=== PATIENT | female | born 1950 | race Caucasian/White ===

== ENCOUNTER → 2016-08-21 | Outpatient (CLI) | payer OTHER ==
[~2016-08-21] MED LIST: CLOB15CR TP; CYCL10TA2 PO; DICL75TA PO; FLUT1DIS IH; IOHEXOL 180 MG/ML 10 ML VIAL. ONE; MULT1TAB52 PO; PROAIR HFA8.5 GM INH; TIOT18CA IH; methylPREDNISolone ACETATE 40 MG/ML VIAL. ONE; methylPREDNISolone ACETATE 80 MG/ML VIAL. ONE
--- NOTE | 2016-08-22 02:36 | PAIN ---
DATE OF SERVICE: INITIAL CONSULTATION FOR PAIN CLINIC CHIEF COMPLAINT: Neck and left upper extremity pain. HISTORY OF PRESENT ILLNESS: This is a 66-year-old female, who presents with a history of pain since earlier this month in the base of the neck and shoulder, radiating with tingling and cramping with weakness in the left arm without result of any specific injury or action that she is aware of, but came on fairly quickly, but without certain injury. She was exercising with some weights and the next day, felt the pain in the base of the neck and left arm and shoulder. The patient reports numbness and radiating pain in the left arm, nothing on the right side. It is becoming more constant, stabbing, throbbing, and shooting in the right____ upper extremity with some burning as well. The patient reports that it is worse at night, sleeping on her left side, and awakes from sleep at least once or twice at night. It does not affect her bowel or bladder control or ability to walk. She has done physical therapy in the past, which was not significantly helpful for her neck, but the chiropractic treatment in the past was fairly helpful several years ago, but nothing recently, and it was not going down her left arm at that time by her report. The patient reports worse with increasing activity using her activity with her arms over her head - even just putting on clothing is becoming more painful and difficult to perform secondary to the pain. The patient did have an MRI scan of the cervical spine that shows spinal stenosis at C4-5 to C6-7 with spinal cord deformity and disk bulges at C4-5, and disk protrusion with bilateral C5-6 and right C6-7 neuroforaminal narrowing, which may affect the exiting nerve roots. The patient reports no loss of motor function, but significant fatigability with her left upper extremity as noted. PAST MEDICAL HISTORY: Significant for hearing aids, glasses, COPD, shortness of breath - on home oxygen, smoking, and history of gastroesophageal reflux, arthritis, and skin sensitivities. PREVIOUS SURGERY: Includes hernia repair. CURRENT MEDICATIONS: Include the clobetasone____ inhaler, multivitamins, cyclobenzaprine, diclofenac, Advair inhaler, Spiriva inhaler, and ProAir inhaler. ALLERGIES: THE PATIENT HAS MULTIPLE ALLERGIES INCLUDING LATEX AND MULTIPLE PRESERVATIVE AGENTS, FRAGRANCES, COLORED CLOTHING DYES, AND DISINFECTANTS DOCUMENTED ON THE PATIENT'S CHART. FAMILY HISTORY: Significant for no major medical problems or conditions that she is aware of. SOCIAL HISTORY: The patient does not drink alcohol, has a smoking history, but quit many years ago. She is , lives with her spouse, and is currently retired, living in [place], [place]. REVIEW OF SYSTEMS: The patient's review of systems is positive for those items mentioned in the history of present illness. All systems were reviewed and are otherwise negative. It is complete, full, and well-documented on the patient's chart. PHYSICAL EXAMINATION: VITAL SIGNS: Today, blood pressure is 134/98, pulse 88, respirations 18, temperature 98.6 degrees Fahrenheit, height is 5 feet 6 inches, and weight is 182 pounds. GENERAL: The patient is awake, alert, oriented, and appropriate, very pleasant demeanor. HEENT: Head shows normocephalic, atraumatic. Extraocular movements are intact and symmetrical. Oral cavity - mucous membranes are moist and pink. Dentition is intact. NECK: Shows anterior throat supple without palpable lymphadenopathy noted. Swallow reflex is symmetrical. CHEST: Shows normal on inspection. Breath sounds are clear to auscultation bilaterally. HEART: Shows S1 and S2 clear. No murmurs are auscultated. ABDOMEN: Soft, obese, nontender, and nondistended. No palpable organomegaly is noted. No rebound or guarding demonstrated. BACK: Shows spine grossly midline. Normal-appearing cervical lordotic curvature, thoracic kyphotic curvature, and lumbar lordotic curvature. No previous bruises, lesions, rashes, or scars are noted throughout the spine. The patient's neck shows moderate tenderness with palpation, although symmetrical in appearance in the cervical paraspinous musculature, slightly more on the left side than the right, but without asymmetry with only minimal increase in pain on the left side compared to the right without radiation or trigger points. The patient has full rotational motion of the cervical spine, both laterally greater than 45 degrees, close to 90 degrees right and left, as well as full extension and full forward flexion without significant difficulty or pain reported, mildly tender with far left lateral rotation only without radiation. EXTREMITIES: The patient's upper extremities show deep tendon reflexes at 2+ in the biceps and triceps tendons. Motor exam is strong with approximately 4 on a scale of 5 with draftsperson strength, left and 5/5 on the right. Biceps and triceps flexion is likewise 4/5 left and 5/5 right. Shoulder shrug is strong and intact without loss of strength and resistance as is abduction of shoulders to 90 degrees without loss of strength on resistance. Peripheral pulses are 2+ in the radial distribution. No peripheral edema is noted. No clubbing, no cyanosis. Upper extremities are warm and dry to touch, equal in color and appearance. IMPRESSION: 1. This is a 66-year-old female, who presents with a history of neck and left upper extremity pain in a radicular fashion for about 1 month now. 2. MRI scan as noted. 3. History of chronic obstructive pulmonary disease with home oxygen requirements. PLAN: Options were discussed with the patient and the patient's spouse, who accompanies her to visit today. We discussed continued physical therapies, interventional techniques, and medication managements. The patient would like to pursue interventional techniques. We discussed a cervical epidural steroid injection, using description as well as anatomical models to describe the procedure. Risks were then discussed including, but not limited to bleeding, infection, possibility of epidural hematoma, subsequent neurologic compromise, dural punctures, headaches, spinal cord and/or nerve damage, side effects of steroid medication, and poor results regarding pain control. The patient understands and wishes to proceed. The patient will return to clinic in approximately 2 weeks for followup, was counseled on return appointment, activity level, and side effects to be aware of. DIAGNOSES: Cervical radiculopathy with cervical spinal stenosis and cervical degenerative disk disease. PROCEDURE: Cervical epidural steroid injection: Translaminar approach at the C5-6 level using C-arm fluoroscopic guidance under sterile prep and drape using local anesthetic. MEDICATIONS INJECTED: Depo-Medrol 120 mg plus 5 mL of preservative-free normal saline and 2 mL of Isovue for contrast. CONDITION AT DISCHARGE: Stable. The patient tolerated the procedure well, had no complications. EVIE MEMBRENO MD DR: HOWIE/chase JOB#: [id number] / [id number]
== END | disposition home or self-care (01) ==
LOC: PNCL 11:01
PROVIDERS: ATTEND Anesthesiology
DX: M50.123 Cervical disc disorder at C6-C7 level with radiculopathy (principal); M48.02 Spinal stenosis, cervical region; J44.9 Chronic obstructive pulmonary disease, unspecified; K21.9 Gastro-esophageal reflux disease without esophagitis; M19.90 Unspecified osteoarthritis, unspecified site; Z87.891 Personal history of nicotine dependence
CPT/HCPCS: 62321; J1030; J1040

== ENCOUNTER → 2016-09-05 | Outpatient (CLI) | payer OTHER ==
--- NOTE | 2016-09-05 19:04 | PAIN ---
DATE OF SERVICE: 09/05/2016 PROGRESS NOTE FOR PAIN CLINIC DIAGNOSES: Cervical radiculopathy, cervical spinal stenosis and cervical degenerative disk disease. HISTORY OF PRESENT ILLNESS: The patient is a 66-year-old female, who returns for followup status post fall on cervical epidural steroid injection x 1. The patient reports about 50% improvement in the neck and left upper extremity. The pain is returning now, it is better for about a week and a half. The pain is now returning in the base of the neck, left shoulder, left upper extremity and the hand with some tingling and numbness as well as some weakness returning the patient reports for first week or so, was doing much better. She is very pleased with her progress, but it is ____ returning as such. The patient reports no new motor or sensory deficits, no new complaints, reports the pain is radiating tingling, cramping with tightness, shooting, sharp and aching pains as well. PHYSICAL EXAMINATION: VITAL SIGNS: Today, the patient's blood pressure is 143/94, pulse is 80, respirations 18, temperature 98.7 degrees Fahrenheit. Height is 5 feet 6 inches, weight is 183 pounds. GENERAL: The patient is awake, alert, oriented, appropriate, very pleasant demeanor. HEENT: Head shows normocephalic, atraumatic. Extraocular movements are intact and symmetrical. Oral cavity shows mucous membranes moist and pink. Dentition is intact. NECK: Shows anterior throat supple without palpable lymphadenopathy noted. Swallow reflex is symmetrical. CHEST: The patient's chest shows normal on inspection. Breath sounds clear to auscultation bilaterally. HEART: Shows S1 and S2 clear. EXTREMITIES: Upper extremity showed deep tendon reflexes at 2+ in the biceps and triceps tendons. Motor exam is approximately 4 on a scale of [address] inspector strength and 5/5 on the right. Neck shows good rotational motion as well as extension and flexion without exacerbation of pain in the left arm. Options were discussed with the patient and the patient's old chart was reviewed as her current medication regimen updated. Current review updated today as well. We will proceed with a second cervical epidural steroid injection today with fluoroscopic guidance. Risks were again discussed including, but not limited to bleeding, infection, possibility of intravascular injection and sequelae, spread of local anesthetic and numbness, epidural hematoma and subsequent neurological compromise, dural punctures, headaches, spinal cord and/or nerve damage, pneumothorax, side effects of steroid medications, exposure to fluoroscopy and poor results regarding pain control. The patient understands and wishes to proceed. The patient will return to the clinic in approximately 2 weeks for followup, was counseled as to return appointment, activity level and side effects to be aware of. DIAGNOSES: Cervical radiculopathy, cervical spinal stenosis, cervical degenerative disk disease. PROCEDURE: Cervical epidural steroid injection in translaminar approach at the C6-C7 level using C-arm fluoroscopic guidance under sterile prep and drape and local anesthetic. MEDICATIONS INJECTED: 120 mg Depo-Medrol plus 5 mL of preservative-free normal saline and 2 mL Isovue contrast. CONDITION AT DISCHARGE: Stable. The patient tolerated the procedure well, had no complications. EVIE MEMBRENO MD DR: HOWIE/chase JOB#: [id number] / [id number]
== END | disposition home or self-care (01) ==
LOC: PNCL 09:49
PROVIDERS: ATTEND Anesthesiology
DX: M50.123 Cervical disc disorder at C6-C7 level with radiculopathy (principal); M48.02 Spinal stenosis, cervical region
CPT/HCPCS: 62321; J1030; J1040

== ENCOUNTER → 2016-09-24 | Outpatient (CLI) | payer OTHER ==
--- NOTE | 2016-09-24 20:04 | PAIN ---
DATE OF SERVICE: 09/24/2016 PROGRESS NOTE FOR PAIN CLINIC DIAGNOSES: Cervical radiculopathy with cervical spinal stenosis and cervical degenerative disk disease. HISTORY OF PRESENT ILLNESS: The patient is a 66-year-old female, who returns for followup status post cervical epidural steroid injections x 2. The patient reports about 90% improvement for the first 5 days. The pain is returning now since that time in the neck and left upper extremity as it was ____ anywhere from 3 to 8 on a scale 10, currently 1 on a scale of 10, is tingling, cramping, shooting, aching and radiating pain, which can be severe. The patient reports no new motor or sensory deficits; however, no new complaints, still some fair significant pain again reduce for about 5 days, but then returned. PHYSICAL EXAMINATION: VITAL SIGNS: The patient's blood pressure 152/91, pulse 87, respirations are 20, temperature 97.5 degrees Fahrenheit, weight is 183 pounds. GENERAL: The patient is awake, alert, oriented, appropriate, very pleasant demeanor. HEENT: Head shows normocephalic, atraumatic. Extraocular movements are intact and symmetrical. Oral cavity, mucous membranes are moist and pink. Dentition is intact. NECK: Shows anterior throat supple without palpable lymphadenopathy noted. Swallow reflex is symmetrical. CHEST: Shows normal on inspection. Breath sounds are clear to auscultation bilaterally. HEART: Shows S1, S2 clear. ABDOMEN: Soft, nontender, nondistended. No palpable organomegaly, no rebound or guarding demonstrated. BACK: Shows spine grossly midline. Neck shows some moderate tenderness to palpation only in the low aspect of the posterior cervical paraspinous musculature without radiation. The patient's neck shows good rotational motion as well as extension and flexion without significant pain reported with some mild pain bilaterally with rotation only and extension, but not with forward flexion. EXTREMITIES: The patient's upper extremities show deep tendon reflexes 2+ in the biceps and triceps tendons. Motor exam is strong with snowmaker strength rated at 5/5 as is biceps and triceps flexion and equal. Options were discussed with the patient and the patient's old chart was reviewed as her current medication regimen updated. Current review of systems updated today as well. We will proceed with third in the series of cervical epidural steroid injection using C-arm fluoroscopic guidance. Risks were again discussed including, but not limited to bleeding, infection, possibility of epidural hematoma, subsequent neurologic compromise, dural punctures, headaches, spinal cord and/or nerve damage, side effects of steroid medication and poor results regarding pain control. The patient understands and wishes to proceed. The patient will return to clinic in approximately 2 weeks for followup, was counseled as to return appointment and activity level and side effects to be aware of. DIAGNOSES: Cervical radiculopathy with cervical spinal stenosis and cervical degenerative disk disease. PROCEDURE: Cervical epidural steroid injection in translaminar approach at C6-C7 level using C-arm fluoroscopic guidance under sterile prep and drape and local anesthetic. MEDICATIONS INJECTED: Depo-Medrol 120 mg plus 5 mL of preservative-free normal saline and 2 mL of Isovue for contrast. CONDITION AT DISCHARGE: Stable. The patient tolerated procedure well, had no complications. EVIE MEMBRENO MD DR: HOWIE/chase JOB#: [id number] / [id number]
== END | disposition home or self-care (01) ==
LOC: PNCL 09:52
PROVIDERS: ATTEND Anesthesiology
DX: M50.123 Cervical disc disorder at C6-C7 level with radiculopathy (principal); M48.02 Spinal stenosis, cervical region
CPT/HCPCS: 62321; J1030; J1040

== ENCOUNTER → 2016-10-17 | Outpatient (CLI) | payer OTHER ==
[~2016-10-17] MED LIST changes: -IOHEXOL 180 MG/ML 10 ML VIAL. ONE; -methylPREDNISolone ACETATE 40 MG/ML VIAL. ONE; -methylPREDNISolone ACETATE 80 MG/ML VIAL. ONE
== END | disposition home or self-care (01) ==
LOC: PF 09:41
PROVIDERS: ATTEND Internal Medicine Critical Care Medicine
DX: R06.02 Shortness of breath (principal)
CPT/HCPCS: 94060; 94729

== ENCOUNTER → 2017-10-30 | Outpatient (CLI) | payer MEDICARE | END | disposition home or self-care (01) | LOC: NM 13:27 | DX: J84.10 Pulmonary fibrosis, unspecified (principal); R91.8 Other nonspecific abnormal finding of lung field | CPT/HCPCS: 71046; 78582; 96374; A9540; A9558 ==

== ENCOUNTER → 2017-10-31 | Outpatient (CLI) | payer MEDICARE ==
[~2017-10-31] MED LIST changes: -CLOB15CR TP; -CYCL10TA2 PO; -DICL75TA PO; -FLUT1DIS IH; +IOHEXOL 300 MG/ML 10ML VIAL. IV; -MULT1TAB52 PO; -PROAIR HFA8.5 GM INH; -TIOT18CA IH
[2017-10-31] MEDS: IOHEXOL 300 MG/ML 100ML VIAL. IV (13:31)
[2017-10-31 13:36] LABS: ISTAT CREATININE 0.8 mg/dL (0.6-1.1)
== END | disposition home or self-care (01) ==
LOC: KCIC CT 12:35
DX: M47.894 Other spondylosis, thoracic region (principal); J84.10 Pulmonary fibrosis, unspecified; R91.8 Other nonspecific abnormal finding of lung field; R60.0 Localized edema; Z87.891 Personal history of nicotine dependence
CPT/HCPCS: 71275; 82565; Q9967

== ENCOUNTER → 2017-11-04 | Outpatient (CLI) | payer MEDICARE ==
[2017-11-04] MEDS: IOHEXOL 300 MG/ML 100ML VIAL. IV (10:19)
[2017-11-04] MEDS: IOHEXOL 240 MG/ML 50ML VIAL. PO (10:19)
== END | disposition home or self-care (01) ==
LOC: KCIC CT 08:55
DX: R59.0 Localized enlarged lymph nodes (principal); J44.9 Chronic obstructive pulmonary disease, unspecified; Z87.891 Personal history of nicotine dependence
CPT/HCPCS: 74177; Q9966; Q9967

== ENCOUNTER 2017-11-08 06:54 | Outpatient (CLI) | payer MEDICARE ==
[2017-11-08 07:23] LABS: ADD MAN DIFF? NO
[2017-11-08 07:27] LABS: BASO # 0.1 x10^3/uL (0.0-0.2); BASO % 1 % (0-3); EOS # 0.3 x10^3/uL (0.0-0.7); EOS % 5 % (0-3); HEMOGLOBIN 13.5 g/dL (12.0-15.5); LYMPH # 1.4 x10^3/uL (1.0-4.8); LYMPH % 22 % (24-48); MEAN CORPUSCULAR HEMOGLOBIN 30 pg (25-35); MEAN CORPUSCULAR HGB CONC 34 g/dL (31-37); MEAN CORPUSCULAR VOLUME 88 fL (79-100); MONO # 0.6 x10^3/uL (0.0-1.1); MONO % 10 % (0-9); NEUT # 4.1 x10^3uL (1.8-7.7); NEUT % 63 % (31-73); PLATELET COUNT 353 x10^3/uL (140-400); RED BLOOD COUNT 4.54 x10^6/uL (3.50-5.40); RED CELL DISTRIBUTION WIDTH 14.1 % (11.5-14.5); WHITE BLOOD COUNT 6.6 x10^3/uL (4.0-11.0)
[2017-11-08 07:37] LABS: PARTIAL THROMBOPLASTIN TIME 30 SEC (24-38); PROTHROMBIN TIME PATIENT 12.9 SEC (11.7-14.0)
[2017-11-08] MEDS ORDERED: LIDOCAINE WITH 8.4% SOD BICARB 3 ML DISP.SYRIN. (07:55)
[2017-11-08] MEDS ORDERED: MIDAZOLAM HCL/PF 2 MG/2 ML VIAL. (08:43)
[2017-11-08] MEDS ORDERED: fentaNYL PF VIAL 100 MCG/2 ML VIAL (08:44)
[2017-11-08] MEDS: LIDOCAINE WITH 8.4% SOD BICARB 3 ML DISP.SYRIN. IJ (09:13)
[2017-11-08] MEDS: MIDAZOLAM HCL/PF 2 MG/2 ML VIAL. IV (09:13)
[2017-11-08] MEDS: fentaNYL PF VIAL 100 MCG/2 ML VIAL IV (09:14)
== END 2017-11-08 10:55 | disposition home or self-care (01) ==
LOC: INTRAD 06:54
DX: R59.1 Generalized enlarged lymph nodes (principal); Z91.040 Latex allergy status; Z91.048 Other nonmedicinal substance allergy status; Z88.8 Allergy status to other drugs, medicaments and biological substances; J45.909 Unspecified asthma, uncomplicated; F32.9 Major depressive disorder, single episode, unspecified; F17.200 Nicotine dependence, unspecified, uncomplicated; Z79.01 Long term (current) use of anticoagulants
CPT/HCPCS: 36415; 49180; 77012; 85025; 85610; 85730; 88184; 88185; 88305; 99152; 99153; J2250; J3010

== ENCOUNTER → 2018-04-09 | Outpatient (CLI) | payer MEDICARE ==
[2017-11-08 10:21] VITALS: BP 118/75
[~2018-04-09] MED LIST changes: +BUPR150T20 PO; +CALC-77 PO; +CLOB15CR TP; +CYCL10TA2 PO; +DICL75TA PO; +FLUT1DIS IH; -IOHEXOL 300 MG/ML 10ML VIAL. IV; +MAGN400C PO; +MULT1TAB52 PO; +PANT20TA2 PO; +PROAIR HFA8.5 GM INH; +TIOT18CA IH
--- NOTE | 2018-04-09 11:19 | RAD ---
Examination: CT CHEST WO CONTRAST History: F/U LUNG NODULE NO CONTRAST PREV SENT Comparison/Correlation: 10/31/2017 CTA of the chest Findings: Axial images of the chest were obtained without contrast. Sagittal and coronal reformatted images were provided. Diffuse centrilobular emphysematous involvement of the lung conley identified. The tracheobronchial tree is unremarkable. Previously described right upper lobe nodule at the mid thoracic level has resolved. Punctate calcified granuloma at this site is seen. There is a new noncalcified nodule lateral to the left lower lobe bronchus on axial image 142 measuring 0.7 cm diameter Mild luminal narrowing involving the right lower lobe bronchus on axial image 221 is present. Mild luminal narrowing of the left lower lobe bronchus similar in appearance also identified on axial image 238. The left lateral costophrenic sulcus, there is a 0.7 cm x 0.6 cm x 0.5 cm longitudinal spiculated infiltrate identified best seen on axial image 48 of series 2. This finding is new compared to prior exam. Linear scarring involving the lingula adjacent to the mediastinum is unchanged compared to 10/31/2017 although it is new compared to 11/19/2014. No enlarged thoracic lymph nodes. No pleural or pericardial effusion. Retrocrural and upper abdominal retroperitoneal lymph nodes are similar upon correlation with CT of the abdomen and pelvis without contrast dated 04/01/2018 mild left hydronephrosis again seen. Subtle high density within the gallbladder which may represent sludge or calculi noted. Impression: There are new left lung nodule and lateral basilar scar/nodule. Interval follow-up to assess resolution recommended. Consider follow-up in 3-6 months. Resolution of previously evident right upper lobe nodule. Mild luminal narrowing of the right and a left lower lobe bronchus. These likely represent mucous plugging. This also may be assessed on follow-up. Retrocrural and upper abdominal lymphadenopathy again seen. Emphysema. Possibility of cholelithiasis. Electronically signed by: Jj Khoury MD (04/09/2018 11:15 AM) [facility]
== END | disposition home or self-care (01) ==
LOC: CT 10:24
PROVIDERS: ATTEND Internal Medicine Critical Care Medicine
DX: R91.1 Solitary pulmonary nodule (principal); J43.2 Centrilobular emphysema; N13.39 Other hydronephrosis
CPT/HCPCS: 71250

== ENCOUNTER 2018-04-14 08:42 | Outpatient (CLI) | payer MEDICARE ==
[~2018-04-14] VITALS: Ht 167.6 cm; Wt 79.4 kg
[2018-04-14] VITALS (17 sets, daily range): BP systolic 112–158; BP diastolic 2–93
[2018-04-14 09:03] LABS: BASO # 0.1 x10^3/uL (0.0-0.2); BASO % 1 % (0-3); EOS # 0.4 x10^3/uL (0.0-0.7); EOS % 4 % (0-3); HEMATOCRIT 40.4 % (36.0-47.0); HEMOGLOBIN 13.6 g/dL (12.0-15.5); LYMPH # 1.3 x10^3/uL (1.0-4.8); LYMPH % 16 % (24-48); MEAN CORPUSCULAR HEMOGLOBIN 30 pg (25-35); MEAN CORPUSCULAR HGB CONC 34 g/dL (31-37); MEAN CORPUSCULAR VOLUME 90 fL (79-100); MONO # 0.9 x10^3/uL (0.0-1.1); MONO % 11 % (0-9); NEUT # 5.8 x10^3uL (1.8-7.7); NEUT % 68 % (31-73); PLATELET COUNT 411 x10^3/uL (140-400); RED BLOOD COUNT 4.49 x10^6/uL (3.50-5.40); RED CELL DISTRIBUTION WIDTH 14.7 % (11.5-14.5); WHITE BLOOD COUNT 8.5 x10^3/uL (4.0-11.0)
[2018-04-14 09:39] LABS: PROTHROMBIN TIME PATIENT 13.5 SEC (11.7-14.0)
[2018-04-14] MEDS ORDERED: LIDOCAINE WITH 8.4% SOD BICARB 3 ML DISP.SYRIN. ONE (10:02)
[2018-04-14] MEDS ORDERED: MIDAZOLAM HCL/PF 2 MG/2 ML VIAL. ONE (10:15)
[2018-04-14] MEDS ORDERED: fentaNYL PF VIAL 100 MCG/2 ML VIAL ONE (10:15)
[2018-04-14] MEDS ORDERED: LIDOCAINE WITH 8.4% SOD BICARB 3 ML DISP.SYRIN. IJ ONE (10:30)
[2018-04-14] MEDS ORDERED: fentaNYL PF VIAL 100 MCG/2 ML VIAL IV ONE (10:30)
[2018-04-14] MEDS ORDERED: MIDAZOLAM HCL/PF 2 MG/2 ML VIAL. IV ONE (10:30)
--- NOTE | 2018-04-14 16:13 | RAD ---
CT-guided biopsy, enlarging perisplenic nodule 04/14/2018 Indication: 68-year-old female with somewhat amorphous soft tissue density mass surrounding the abdominal aorta. Imaging findings are concerning for worsening periaortic adenopathy. Patient also has an enlarging perisplenic nodule. This could also represent an enlarged lymph node. Both processes have progressed over the last 6 months. Approximately 6 months ago previous percutaneous biopsy was performed with nondiagnostic results. The case was discussed with the ordering physician and biopsy of the perisplenic nodule was chosen. Discussion: The risks and benefits of the procedure were discussed the patient. Informed consent was obtained. A timeout procedure was performed. The left posterior thorax and upper abdomen were and prepped and draped using sterile barrier technique. 1% lidocaine was administered for local anesthesia. Under intermittent CT guidance a 17-gauge needle was advanced to the periphery of the nodule. Multiple 18-gauge core biopsy samples were obtained and divided amongst formalin and RPMI fluid. Needle was removed and manual pressure held. Repeat imaging demonstrated no significant hemorrhage or other complication. Sterile dressings were applied. The procedure was performed under conscious sedation including continuous cardiopulmonary monitoring via a dedicated sedation nurse. [id number] sedation time: 45 minutes Impression: CT-guided biopsy, perisplenic nodule PQRS Compliance Statement: One or more of the following individualized dose reduction techniques were utilized for this examination: 1. Automated exposure control 2. Adjustment of the mA and/or kV according to patient size 3. Use of iterative reconstruction technique
--- NOTE | 2018-04-18 16:07 | PATHOLOGY ---
[facility] Accession Number: [id number] . 01 Material submitted: . ABDOMINAL MASS BIOPSY . 01 Clinical history: . Abd mass . 02 Diagnosis: Fibroadipose tissue, abdominal mass CT-guided needle biopsies: - METASTATIC POORLY DIFFERENTIATED ADENOCARCINOMA. SEE COMMENT. . (JPM:edy; 04/16/2018) QMS/04/16/2018 . 02 Comment: Sections of the abdominal mass CT-guided needle biopsy reveal a malignant epithelial neoplasm involving segments of fibroadipose tissue. The malignant cells are present in solid nests. The malignant cells have moderate amounts of pale esophophilic cytoplasm, and possess enlarged, rounded to irregular moderately pleomorphic hyperchromatic nuclei containing prominent nucleoli. The tumor shows no obvious glandular or squamous differentiation. A few tumor cells appear to possess intracytoplasmic lumina. There are mitotic figures present. . A portion of the specimen submitted for lymphocyte marker studies by flow cytometry shows no flow immunophenotypic evidence of a T-cell lymphoproliferative disorder and too few B-cells for evaluation. . A panel of immunoperoxidase stains is obtained on block A1 and yields the following results: . AE1/AE3: Tumor cells positive Cytokeratin 7: Tumor cells positive Cytokeratin 20: Tumor cells negative TTF-1: Tumor cells negative p40: Tumor cells negative CDX2: Tumor cells negative Thrombomodulin: Tumor cells negative. ER: Tumor cells positive [place]: Tumor cells negative. . The morphologic and immunophenotypic findings are supportive of the diagnosis of metastatic poorly-differentiated adenocarcinoma. Considering the CT findings of retrocrural and retroperitoneal adenopathy, possible primary sites would include upper gastrointestinal tract, pancreaticobiliary tract, and female genital tract. The presence of ER positivity is suggestive of female genital tract origin which would include endometrium and ovary. The case is also examined by Dr. Miguel Hewitt, who concurs with the diagnosis. (JPM:edy; 04/16/2018) . . Special stains performed: Immunoperoxidase stains for AE1/AE3, CK7, CK20, TTF-1, p40, CDX2, thrombomodulin, ER, and NY. . 02 Electronically signed: . Yasmany Yoon MD, Pathologist NPI- [id number] . 01 Gross description: . The specimen is received in formalin, labeled "Pippanorbertochristine, Reguloa, abd mass BX" and consists of 2 needle cores of yellow-smith tissue measuring 0.8 cm each in length and 0.1 cm in diameter. They are entirely submitted in A1. (SDY; 04/14/2018) SYU/SYU . 02 Pathologist provided ICD-10: C79.89 . 02 CPT . 595470, J99504, C22304 Specimen Comment: A courtesy copy of this report has been sent to Specimen Comment: [phone], . Specimen Comment: Report sent to / DR WOLF Performed at: 01 [facility] [address], [place] [id number] MD Aj Mayo MD Phone: [phone] Performed at: [facility] [address] [place], [place] [id number] MD Yasmany Yoon MD Phone: [phone]
== END 2018-04-14 12:15 | disposition home or self-care (01) ==
LOC: INTRAD 08:42
PROVIDERS: ATTEND Family Medicine
DX: C48.0 Malignant neoplasm of retroperitoneum (principal); Z79.01 Long term (current) use of anticoagulants; Z91.040 Latex allergy status; Z88.5 Allergy status to narcotic agent; Z88.8 Allergy status to other drugs, medicaments and biological substances; Z91.048 Other nonmedicinal substance allergy status; Z87.891 Personal history of nicotine dependence
CPT/HCPCS: 36415; 49180; 77012; 85025; 85610; 88184; 88185; 99152; 99153; J2250; J3010

== ENCOUNTER → 2018-10-16 | Outpatient (CLI) | payer MEDICARE ==
[2018-04-14 12:15] VITALS: BP 135/2
[~2018-10-16] MED LIST changes: +ALBU2.5V8 INH; -PROAIR HFA8.5 GM INH
--- NOTE | 2018-10-16 11:16 | RAD ---
EXAM: PA and Lateral Views of the Chest DATE: 10/16/2018 12:00 AM INDICATION: COMPARISON: No Prior FINDINGS: Right chest Port-A-Cath tip projects over the middistal SVC. The heart is not enlarged. Mediastinal and hilar contours are stable. No focal parenchymal airspace opacity. No lobar consolidation. Bilateral emphysematous changes are seen. Calcified granuloma right upper lung. No pleural effusion or pneumothorax. IMPRESSION: 1. No evidence for acute cardiopulmonary process. 2. Right Port-A-Cath tip terminates at the mid-distal SVC. 3. Emphysematous changes are seen. Electronically signed by: Jones Felipe MD (10/16/2018 11:13 AM) [id number]
== END | disposition home or self-care (01) ==
LOC: RAD 10:41
PROVIDERS: ATTEND Internal Medicine Critical Care Medicine
DX: J43.8 Other emphysema (principal); J84.10 Pulmonary fibrosis, unspecified; J90 Pleural effusion, not elsewhere classified
CPT/HCPCS: 71046